=== PATIENT | female | born 1970 | race Hispanic/Latino ===

== ENCOUNTER 2025-04-28 07:45 | Observation (INO) | payer BC ==
[2025-04-27 13:23] LABS: IMMATURE GRANULOCYTE ABSOLUTE 0.01 K/uL (0-1); NUCLEATED RED BLOOD CELLS 0.0 % (0.0-0.19); PLATELET COUNT (AUTO) 252 K/uL (130-400); RED BLOOD CELL COUNT(AUTO) 4.81 MIL/uL (4.00-5.50); RED CELL DISTRIBUTION WIDTH 12.3 % (11.0-15.5); WHITE BLOOD COUNT (AUTO) 6.9 K/uL (4.8-10.8)
[2025-04-27 13:30] LABS: CREATININE 0.8 mg/dL (0.5-1.0); GLOMERULAR FILTR. RATE CALC 86.0 mL/min (>90); GLUCOSE,RANDOM 91.0 mg/dL (70-105); SODIUM SERUM 139.0 mmol/L (136-145); UREA NITROGEN, BLOOD 9.0 mg/dL (7-18)
[2025-04-27 13:32] LABS: INR 0.94 (0.85-1.15)
[2025-04-27 14:04] VITALS: BP 116/76; PULSE 83; RESP 18; TEMP 97.9
[2025-04-28] VITALS (24 sets, daily range): BP systolic 100–123; BP diastolic 56–74; PULSE 50–100; RESP 13–18; TEMP 97–97.6; O2SAT 96–99
[~2025-04-28] VITALS: Ht 154.9 cm; Wt 69.4 kg
[2025-04-28] MEDS ORDERED: PROMETHAZINE HCL 25 MG/ML 1ML AMPULE IM PRN (08:30)
[2025-04-28] MEDS ORDERED: MIDAZOLAM HCL 1 MG/ML 2ML VIAL ONE (10:39)
[2025-04-28] MEDS ORDERED: NEOSTIGMINE METHYLSULFATE 1MG/ML IV ONE (12:50)
[2025-04-28] MEDS ORDERED: GLYCOPYRROLATE 0.2 MG/ML 5 ML VIAL ONE (12:50)
[2025-04-28] MEDS ORDERED: PROCHLORPERAZINE 10MG/2ML INJ IV PRN (13:30)
[2025-04-28] MEDS: LACTATED RINGERS 1000ML 1,000 ML IV SCH (15:48)
[2025-04-28] MEDS: LACTATED RINGERS 1000ML 1,000 ML IV ONE (15:48)
--- NOTE | 2025-04-28 15:58 | OP ---
Operative Note: DATE OF PROCEDURE: 04/28/25 SURGEON: ENOCH MISHRA MD LIQUID YEAST SUPERVISOR: [Please review operative record] ANESTHESIA: [General and local] ANESTHESIOLOGIST/MANAGER PEDIATRIC: [[facility] anesthesia] PREOPERATIVE DIAGNOSIS: [Diaphragmatic hernia, severe GERD] POSTOPERATIVE DIAGNOSIS: [Same] SYNOPSIS: [1 cm hiatal hernia containing incarcerated cardia. Successfully reduced, primarily repair, reinforced with the mesh. Kayleigh fundoplication performed. EGD post repair showing no air leak, no stenosis, adequate reduction of hiatal hernia, intact wrap.] PROCEDURE: [1. Robotic assisted laparoscopic hiatal hernia repair with mesh reinforcement 2. Robotic assisted laparoscopic Kayleigh fundoplication. 3. Intraoperative EGD] ESTIMATED BLOOD LOSS: [15 cc] INDICATIONS: [Patient is a 55-year-old female with chronic heartburn. On EGD she was found to have a small hiatal hernia and grade B esophagitis. Patient failed conservative management with dietary changes and medication. Recommendation was given for surgical management with hiatal hernia repair and fundoplication. Risks, benefits, alternatives were discussed with the patient. All questions were answered. Patient agreed to proceed with surgical procedure.] DESCRIPTION OF PROCEDURE: [After appropriate consent was obtained, the patient was transferred to the operating room and placed in supine position on the operating table. SCDs were placed, preop ABX were given. Patient underwent induction of general anesthesia, endotracheal intubation. Patient was then prepped and draped in usual sterile fashion. Time-out was performed. Through a left subcostal incision, Veress needle was inserted into the peritoneal cavity. Insufflation was allowed to 12 mmHg. Through a supraumbilical 8 mm incision, trocar and laparoscope were inserted into the peritoneal cavity using [employer]. Veress needle and this vicinity were examined with no signs of injury. Rest of my trocars were all placed under direct visualization. Patient was positioned in a reverse Trendelenburg at 20. Marisa liver retractor was placed through a 5 mm epigastric incision in order to retract the left lobe of the liver anteriorly. Abdominal pressure was dropped to 10 mmHg. Upon evaluation of the diaphragmatic hiatus, there was 1 cm hiatal hernia containing incarcerated cardia. Our dissection began by incising the hepatogastric ligament in a avascular plane. This was followed cephalad towards the diaphragm using vessel sealer. The hiatal orifice was dissected circumferentially using the vessel sealer. The right crura was identified and a plane was developed between the right navya in the right wall of the esophagus. This dissection was accomplished mostly by blunt dissection. On the posterior aspect of the esophagus, we identified the left navya. The space between the left navya and the esophageal wall was dissected using blunt dissection. A few s hort gastrics were divided in order to fully mobilize the fundus of the stomach. Once the hiatal orifice was fully mobilized, we focused on the intra mediastinal and aspect of the dissection. Once we have 2 cm of intra-abdominal esophagus, we then passed the endoscope through the mouth and into the esophagus and into the stomach. With the endoscope in place, we then proceeded to perform a crural plasty. This was achieved by approximating the left and the right crura on the posterior aspect of the esophagus using two 0 V lock nonabsorbable suture in a running fashion. At the end of the crural plasty, only one instrument was able to pass through the diaphragmatic hiatus. In order to reinforce the repair, an [address] round mesh was used in a U confi guration. It was pexy to the diaphragm using 3-0 V lock absorbable suture and a couple of 2-0 silk interrupted sutures. We then focused on creating our fundoplication. The fundus was grasped from left to right and passed posterior to the esophagus. Shoe shine maneuver was performed in order prevent over tightening the fundoplication. On the anterior aspect of the esophagus the fundus was then suture together using a 2-0 V lock nonabsorbable suture in a running fashion, creating a 360 degree wrap. The length of the wrap was 3 cm. Of note with the repair was performed while the endoscope was then placed. Endoscopy with insufflation was performed revealing no air leak, no stenosis through the GE junction, appropriate reduction of the hiatal hernia, intact wrap. At this time we completed our hiatal hernia repair with Kayleigh fundoplication. The [employer]ft[employer] robot was undocked. Final inspection revealed adequate hemostasis, no concerns for leakage. The abdomen was allowed to deflate. All instruments were removed from the peritoneal cavity. Counts were correct at the end of the case. Skin incisions were closed with 4-0 Monocryl. Dermabond was applied over the incisions. Patient tolerated the procedure well. Patient was then transferred to the recovery in good condition.] ENOCH MISHRA MD Apr 28, 2025 15:58
--- NOTE | 2025-04-28 18:17 | NUR ---
POST OP VITALS UNABLE TO POST UP VITALS COMPLETELY DUE TO PATIENT'S DAUGHTER DISCONNECTING PATIENT FROM VITAL MACHINE AND TURNING IT OFF COMPLETELY WITHOUT NOTIFYING STAFF. EDUCATED PATIENT AND FAMILY TO NOT TO TOUCH EQUIPMENT WITHOUT LETTING STAFF/NURSE KNOW. BOTH VOICED UNDERSTANDING. PATIENT DENIES ANY PAIN OR DISCOMFORT AT THIS TIME. WILL CONTINUE TO MONITOR.
[2025-04-28] MEDS: HYDROcod/acetaMINOPHEN 7.5/325 MG 15 ML UDCUP PO PRN (19:19)
[2025-04-28] MEDS: ENOXAPARIN SODIUM 30 MG/0.3 ML SQ SCH (19:51)
[2025-04-28] MEDS: FAMOTIDINE 20MG VIAL IV SCH (19:52)
[2025-04-29] VITALS: BP 110/69; PULSE 100; RESP 18; TEMP 97.9
[2025-04-29 04:00] VITALS: BP 106/67; PULSE 85; RESP 20; TEMP 97.8
[2025-04-29 07:59] VITALS: BP 114/74; PULSE 74; RESP 18; TEMP 97.8
[2025-04-29 08:00] VITALS: O2SAT 96
--- NOTE | 2025-04-29 10:25 | NUR ---
DCP:HOME Pt currently lives with her and daughter. Pt denies any DME, home health, or provider services. Pt states that she is able to complete ADLs independently. Pt lives in [place] Pt PCP is Dr. Chi in [place] and uses [facility] for any RX needs. At [place] pt will go back to [place] and will assist with transportation.
[2025-04-29 11:31] VITALS: BP 128/80; PULSE 79; RESP 19; TEMP 97.9
--- NOTE | 2025-04-29 14:58 | DS ---
Discharge Summary HOSPITAL COURSE SUMMARY: [] BIG DATA HADOOP DEVELOPER(S): [] PROCEDURES: [] PROBLEM(S): [] DISCHARGE INSTRUCTIONS: [] Home Meds Reported Medications [magnesium] No Conflict Check, 1 TAB PO DAILY 04/27/25 [levocetirizine] No Conflict Check, 10 MG PO DAILY 04/27/25 [vitamin d] No Conflict Check, [address]118 UNIT PO DAILY 04/27/25 Zinc Sulfate (Zinc) 50 Mg Zinc (220 Mg) Tablet, 100 MG PO DAILY, TAB 04/27/25 Famotidine (Famotidine) 40 Mg Tablet, 40 MG PO DAILY, TAB 04/27/25 Esomeprazole Magnesium (Esomeprazole Magnesium) 40 Mg Capsule.dr, 40 MG PO DAILY, CAP 04/27/25 SHAHID OLIVEIRA JUDICIAL CLERK Apr 29, 2025 14:58
[2025-04-29 15:18] VITALS: BP 119/79; PULSE 90; RESP 19
[2025-04-29] MEDS: SIMETHICONE 80 MG TAB.CHEW PO ONE (15:38)
--- NOTE | 2025-04-29 17:14 | NUR ---
PATIENT DISCHARGED HOME ID BAND AND IV REMOVED. DISCHARGE INSTRUCTIONS EXPLAINED AND GIVEN TO PATIENT. PATIENT VERBALIZED UNDERSTANDING. BELONGINGS PACKED AND TAKEN BY PATIENT. WHEELED DOWN TO PRIVATE CAR.
== END 2025-04-29 17:06 | disposition home or self-care (01) ==
LOC: DAH 07:45 → DAHIP 07:46 → 3CH 14:15
PROVIDERS: ADMIT Surgery; ATTEND Surgery
DX: K44.9 Diaphragmatic hernia without obstruction or gangrene (principal); K21.00 Gastro-esophageal reflux disease with esophagitis, without bleeding; E66.9 Obesity, unspecified; Z68.28 Body mass index [BMI] 28.0-28.9, adult; Z79.899 Other long term (current) drug therapy; Z86.2 Personal history of diseases of the blood and blood-forming organs and certain disorders involving the immune mechanism
CPT/HCPCS: 43282; S2900; 36415; 43235; 80048; 84703; 85025; 85610; 85730; 86850; 86900; 86901; 96372; 96374; 96375; 96376; G0378; J1171; J1650; J1885; J2250; J2270; J2704; J2710; J3010; J3490; J7120; A4213; A4215; A4216; A4221; A4222; A4223; A4600; A4663; A4930; C1781; J0665; J0690; J1308; L0625